=== PATIENT | female | born 1945 | race Caucasian/White ===

== ENCOUNTER → 2018-03-24 | Outpatient (CLI) | payer MEDICARE, OTHER ==
[~2018-03-24] MED LIST: ALBU0.63 NEB; ASPI-515 PO; ASPI-621 PO; ATOR20TA9 PO; AZIT500T5 PO; CEFD300C37 PO; ESTR0.5T PO; FLUT1DIS IH; GUAI1TBM11 PO; LEVO125T5 PO; LEVO150T PO; MONT10TA9 PO; REGADENOSON 0.4 MG/5 ML SYRINGE ONE; TEMA15CA6 PO
== END | disposition home or self-care (01) ==
LOC: CFH 12:33
PROVIDERS: ATTEND Internal Medicine Cardiovascular Disease
DX: I34.0 Nonrheumatic mitral (valve) insufficiency (principal); R06.02 Shortness of breath
CPT/HCPCS: 78452; 93017; A9502; J2785